=== PATIENT | male | born 1970 | race Caucasian/White ===

== ENCOUNTER → 2018-01-13 | Outpatient (CLI) | payer OTHER ==
[~2018-01-13] MED LIST: CYMBALTA30 MG PO; GABAPENTIN 100100 MG PO; LISINOPRIL10 MG PO; NEXIUM40 MG PO; ZANAFLEX4 MG PO
--- NOTE | 2018-01-14 09:41 | PAINCON ---
[address] [address] PAIN MANAGEMENT CONSULTATION Name: RENITA ERNST Room: [facility] Barney#: [id number] Admission: 01/13/18 Attend Phys: Alxe Lynn Discharge: Date of : 74 Report #: [id number] THIS REPORT FOR: //name// CC: Christian Chase DATE OF SERVICE: 01/13/2018 HISTORY OF PRESENT ILLNESS: The patient is a pleasant 48-year-old gentleman seen in consultation at the request of Dr. Fernando for assistance with management of ongoing axial back pain. The patient notes pain has been a fairly chronic since about 2008. He had acute lifting injury at that time. He was in the and had just symptomatic care over the years. He has had physical therapy including ultrasound, heat and ice, chiropractic manipulation. Stretching does seem to help. Uses mhlb-[id number] anti-inflammatories, recently started on gabapentin (had been on this in the past). Had seen other pain clinic physicians, I believe in [place] and [place]. It sounds like he has had facet joint injections, epidural injections, SI injection, all with minimal to transient relief. He notes his pain is anywhere from 6-10 on a VAS, primarily exacerbated with sitting, standing and bending. He has a grinding sensation in the upper back, primary pain across the low back. Denies paresthesia, bowel or bladder continence changes or other myelopathic symptoms. REVIEW OF SYSTEMS: Complete review of systems attached to the chart and was gone over with the patient. He is , does not smoke, drink alcohol to excess. He has hypertension, treated with lisinopril, gastroesophageal reflux for which he takes Nexium. Chronic axial back pain as noted in chief complaint. Remaining review of systems is noncontributory (negative). 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 He has been retired for 1 month. Pain impact score averages about 37/70. PHYSICAL EXAMINATION: VITAL SIGNS: Reveals a 5 feet 11 inches, 200-pound gentleman, BMI is 28.6 kilograms per meter squared. VITAL SIGNS: Blood pressure 130/90, pulse 66, respirations of 16. NEUROLOGIC: Alert and oriented to person, place and time, judged to be a reasonable historian. Cranial nerves 2-12 are grossly intact. NECK: Cervical range of motion is full. Thyroid is modestly enlarged. EXTREMITIES: Upper extremity strength is preserved. HEART: Regular [place] [address] PAIN MANAGEMENT CONSULTATION Name: RENITA ERNST Room: [facility]#: [id number] Admission: 01/13/18 Attend Phys: Alex Lynn Discharge: Date of : 74 Report #: [id number] LUNGS: Clear to auscultation. MUSCULOSKELETAL: Rises from chair using armrest. Gait is tandem. Lower extremity strength is preserved. Flexion is good. Tender from about T5 to T7 in the mid back area and a little bit lower about L3 through L5. Nominally tender over the SI joints, but does have a positive AUGUST test bilaterally. Negative straight leg raise. Lower extremity strength is symmetric. Patellar and Achilles reflexes are preserved. Skin integument is intact. Pain is exacerbated with rotating, sidebending throughout the thoracolumbar spine. No discrete trigger points are noted at this time. ASSESSMENT: Symptomatic myofascial pain, axial back pain, component of thoracolumbar spondylosis. RECOMMENDATIONS: 1. We will get x-rays of the cervical, thoracic and lumbar spine today. 2. Start the patient on Cymbalta low dose 30 mg 1 a day, tizanidine 4 mg one-half to one tablet t.i.d. We talked about meloxicam as a possible anti-inflammatory medication, though he has tried this in the past and believes it gave him a rash. He is doing reasonably well, simply taking nvyo-ujz-[id number] Aleve. We will continue that. Follow up after diagnostic studies, we may consider addition of scheduled nonsteroidal anti-inflammatory medication (nabumetone?), evaluate efficacy of Cymbalta and tizanidine. We may push the Cymbalta dose if needed. We may consider targeted facet joint injections and a medial branch dorsal rami neurolysis if indicated. Thank you for allowing me to participate in the patient's care. I will keep abreast of his progress. <ELECTRONICALLY SIGNED> By: Deshawn Chase DO 01/14/18 [id number] Chase DO /efe
== END ==
LOC: M.PC 01:46 → M.RAD 01:46 → M.PC 08:30
DX: M47.894 Other spondylosis, thoracic region (principal); M47.896 Other spondylosis, lumbar region; M47.892 Other spondylosis, cervical region